=== PATIENT | male | born 1995 ===

== ENCOUNTER 2017-03-13 01:29 | Inpatient (IN) | payer OTHER ==
[2017-03-13 01:49] VITALS: RESP 18
[2017-03-13] MEDS ORDERED: Sodium Chloride 0.9% 1,000 ML IV STA (01:50)
[2017-03-13] MEDS ORDERED: ACETYLCYSTEINE IVPB STA ×2 (02:03→02:05)
[2017-03-13] MEDS ORDERED: WATER IVPB STA ×2 (02:03→02:05)
[2017-03-13] MEDS ORDERED: DEXTROSE 5% IVPB STA ×2 (02:03→02:05)
[2017-03-13 02:53] LABS: RBC URINE < 1 /hpf (0-3); URINE BILIRUBIN NEGATIVE (NEGATIVE); URINE BLOOD NEGATIVE (NEGATIVE); URINE COLOR STRAW (YELLOW); URINE GLUCOSE (UA) NEG (Normal); URINE KETONE NEGATIVE (NEGATIVE); URINE LEUKOCYTE ESTERASE NEG Leu/uL (Negative); URINE PROTEIN NEGATIVE (NEGATIVE); URINE UROBILINOGEN 0.2-1.0 mg/dL (0.2-1.0)
[2017-03-13 03:10] LABS: BASO % 0.3 % (0.0-2.0); EOS # 0.1 K/uL (0.0-0.7); HEMATOCRIT 46.1 % (35.0-51.0); LYMPH # 2.2 K/uL (1.0-4.3); LYMPH % 23.1 % (20.0-40.0); MEAN CELL VOLUME 79.1 fl (80.0-94.0); MEAN CORPUSCULAR HEMOGLOBIN 26.2 pg (27.0-31.0); MEAN CORPUSCULAR HGB CONC 33.2 g/dL (33.0-37.0); MEAN PLATELET VOLUME 8.5 fl (7.2-11.7); MONO # 0.5 K/uL (0.0-0.8); MONO % 5.5 % (0.0-10.0); NEUT # 6.8 K/uL (1.8-7.0); NEUT % 70.1 % (50.0-75.0); NRBC % 0.2 % (0.0-0.0); RED CELL DISTRIBUTION WIDTH 13.6 % (11.5-14.5); WHITE BLOOD COUNT 9.7 K/uL (4.8-10.8)
[2017-03-13 03:29] LABS: GLUCOSE,RANDOM 116 mg/dL (75-110)
[2017-03-13 03:30] LABS: BLOOD UREA NITROGEN 10 mg/dl (9-20); CALCIUM 9.7 mg/dL (8.4-10.2); CARBON DIOXIDE 23 mmol/L (22-30); CHLORIDE 106 mmol/L (98-107); GFR AFRICAN-AMERICAN > 60; POTASSIUM 3.5 MMOL/L (3.6-5.0); SODIUM 142 mmol/l (132-148)
[2017-03-13 03:31] LABS: ALB/GLOB RATIO 1.3 (1.0-2.1); ALCOHOL SERUM < 10 mg/dl (0-10); ALKALINE PHOSPHATASE 122 U/L (38-126); ALT/SGPT 27 U/L (21-72); AST/SGOT 24 U/L (17-59); BILIRUBIN,TOTAL 0.4 mg/dl (0.2-1.3)
[2017-03-13 03:56] LABS: PARTIAL THROMBOPLASTIN TIME 28.8 Seconds (25.6-37.1)
--- NOTE | 2017-03-13 03:56 | ED PDOC ---
HPI: Psych/Substance Abuse Time Seen by Provider: 03/13/17 01:49 Chief Complaint (Nursing): Psychiatric Evaluation Chief Complaint (Provider): Psychiatric Evaluation History Per: Patient History/Exam Limitations: no limitations Suicide/Self Injury Attempted (Context): Ingestion Associated Symptoms: Depression, Suicidal Plan Additional Complaint(s): 21 year old male brought in by EMS presents to ED for a psychiatric evaluation status post Tylenol overdose and has no past medical history. Patient reports taking 12 tablets of 500mg extra strength Tylenol. Notes being upset about his estranged relations with his family. EMS states that patient's girlfriend notes a history of depression with suicidal intent. (-) fever, cough, SOB, chest pain , nausea, vomiting, or diarrhea. PCP: CLAIRE Past Medical History Reviewed: Historical Data, Nursing Documentation, Vital Signs Vital Signs: Last Vital Signs Temp 99.8 F H 03/13/17 01:44 Pulse 67 03/13/17 01:44 Resp 18 03/13/17 01:44 BP 117/69 03/13/17 01:44 Pulse Ox 99 03/13/17 01:44 - Medical History PMH: No Chronic Diseases - Surgical History Surgical History: No Surg Hx - Family History Family History: States: No Known Family Hx - Social History Current smoker - smoking cessation education provided: No Ex-Smoker (has not smoked in the last 12 months): No Alcohol: None Drugs: Denies - Home Medications Home Medications: Ambulatory Orders Medication Instructions Recorded No Known Home Med 03/13/17 - Allergies Allergies/Adverse Reactions: Allergies Allergy/AdvReac Type Severity Reaction Status Date / Time No Known Allergies Allergy Verified 03/13/17 01:49 Review of Systems ROS Statement: Except As Marked, All Systems Reviewed And Found Negative Constitutional: Negative for: Fever Cardiovascular: Negative for: Chest Pain Respiratory: Negative for: Cough, Shortness of Breath Gastrointestinal: Negative for: Nausea, Vomiting, Diarrhea Psych: Positive for: Suicidal ideation (Suicide attempt) Physical Exam - Reviewed Nursing Documentation Reviewed: Yes Vital Signs Reviewed: Yes - Physical Exam Appears: Positive for: Non-toxic, No Acute Distress Head Exam: Positive for: ATRAUMATIC, NORMOCEPHALIC Skin: Positive for: Normal Color, Warm, Dry Eye Exam: Positive for: Normal appearance, EOMI, PERRL ENT: Positive for: Normal ENT Inspection Neck: Positive for: Normal, Painless ROM, Supple Cardiovascular/Chest: Positive for: Regular Rate, Rhythm. Negative for: Murmur Respiratory: Positive for: Normal Breath Sounds. Negative for: Respiratory Distress Gastrointestinal/Abdominal: Positive for: Normal Exam, Soft. Negative for: Tenderness Back: Positive for: Normal Inspection Extremity: Positive for: Normal ROM. Negative for: Deformity Neurologic/Psych: Positive for: Alert, Oriented. Negative for: Motor/Sensory Deficits - Laboratory Results Result Diagrams: 03/13/17 02:30 03/13/17 02:30 - ECG O2 Sat by Pulse Oximetry: 99 (RA) Pulse Ox Interpretation: Normal - Critical Care Total Time (In Min): 60 Medical Decision Making Medical Decision Makin Initial impression: status post suicidal attempt, Tylenol overdose Initial plan: * EKG * Acetaminophen * EtOH serum * Labs * UDrug screen * PTT/PT * NS IV * Accucheck * UA 0201 Given patient's history, provider has ordered initial doses of Acetadote. * Salicylate * Poison Control consult * Acetadote 29772 mg dextrose 5% in water 200mL * 1:1 OBS 0205 * Acetadote 3400 mg dextrose 5% in water 500mL 0330 RN Nathanael spoke to poison control Poison control recommends continuing Acetadote and repeating Tylenol level and LFTs at 0600. If at that time the Tylenol level has fallen and liver function remains normal, patient may be cleared for psychiatric admission. 0352 * ED OBS ADMISSION All further documentation will take place in the ED OBS section of the chart. Scribe Attestation: Documented by Donna Ruelas acting as a scribe for Farshad Henley MD. Scribe Attestation: All medical record entries made by the Scribe were at my direction and personally dictated by me. I have reviewed the chart and agree that the record accurately reflects my personal performance of the history, physical exam, medical decision making, and the department course for this patient. I have also personally directed, reviewed, and agree with the discharge instructions and disposition. ED OBSERVATION Date of observation admission: 03/13/17 Time of observation admission: 03:52 - Observation admission statement Patient is being placed in observation because:: Pending labs - Goals of Observation Goals of observation are:: Lab results - Progress Note Progress Note: 03/13/17 05:06 Patient resting comfortably. Vitals are stable. 03/13/17 06:26 Patient resting comfortably. Vitals are stable. Repeat Tylenol level has fallen and is WNL. LFTs remain nl. As per poison, patient can be cleared for psychiatric admission. Patient will be admitted psychiatrically for major depression. Patient is medically stable for psychiatric admission under Dr. Monroe. Condition: fair 03/13/17 19:25 Disposition - Clinical Impression Clinical Impression: Depression, Acetaminophen overdose - Patient ED Disposition Is Patient to be Admitted: Yes - Disposition Disposition Time: 03:52 Condition: FAIR - Pt Status Changed To: Hospital Disposition Of: Inpatient - Admit Certification Admit to Inpatient:: After my assessment, the patient will require hospitalization for at least two midnights. This is because of the severity of symptoms shown, intensity of services needed, and/or the medical risk in this patient being treated as an outpatient. - POA Present On Arrival: None
[2017-03-13 06:22] LABS: ALB/GLOB RATIO 1.5 (1.0-2.1); BILIRUBIN,TOTAL 0.4 mg/dl (0.2-1.3); TOTAL PROTEIN 6.8 G/DL (6.3-8.2)
[2017-03-13] MEDS ORDERED: Alum-Mag Hydrox-Simethicone Susp (30 mL) PO PRN (09:47)
[2017-03-13] MEDS ORDERED: Magnesium Hydroxide Susp 30 ml UD PO PRN (09:47)
[2017-03-13] MEDS ORDERED: DiphenhydrAMINE 50 mg/ml Inj IM PRN (09:47)
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
[2017-03-13 19:26] VITALS: O2SAT 99
--- NOTE | 2017-03-13 19:35 | CARD ---
APPROVED REPORT EKG Measurement Heart [id number] <Conclusion> Normal sinus rhythm RSR' or QR pattern in V1 suggests right ventricular conduction delay Borderline ECG
[2017-03-14 07:38] LABS: CHOLESTEROL 138 mg/dL (0-199)
[2017-03-14 09:16] VITALS: BP 120/71; PULSE 49; TEMP 97.5
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
== END 2017-03-14 09:45 | disposition home or self-care (01) | DRG 430 ==
LOC: H.ER 01:29 → H.EROBSV 03:52 → OBSVTOIN 06:30 → H.ERHOLD 06:30 → H.PSYCH 08:27
PROVIDERS: ADMIT Psychiatry & Neurology Psychiatry; ATTEND Psychiatry & Neurology Psychiatry
DX: F32.1 Major depressive disorder, single episode, moderate (principal); T39.1X2A Poisoning by 4-Aminophenol derivatives, intentional self-harm, initial encounter; Z87.891 Personal history of nicotine dependence